=== PATIENT | male | born 1940 | race Caucasian/White ===

== ENCOUNTER 2018-03-10 11:04 | Inpatient (IN) | payer MEDICARE, SELFPAY ==
[2018-03-10] VITALS (18 sets, daily range): BP systolic 118–147; BP diastolic 50–99; PULSE 108–126; RESP 17–33; TEMP 36.6–37.1; O2SAT 91–97; BMI 20.5; BMI 18.8
--- NOTE | 2018-03-10 11:27 | EKG12_ITS ---
Test Reason : SOB Blood Pressure : / mmHG Vent. Rate : 117 BPM Atrial Rate : 117 BPM P-R Int : 112 ms QRS Dur : 074 ms QT Int : 326 ms P-R-T Axes : 082 073 073 degrees QTc Int : 454 ms Sinus tachycardia Otherwise normal ECG Confirmed by ALINE CUNHA, GARRET ([id number]), newspaper or periodical editor DARRELL QUIROZ ([id number] on 03/14/2018 1:18:07 PM Referred By: FUNMI Confirmed By:GARRET MIRELES MD
--- NOTE | 2018-03-10 11:49 | RAD_ITS ---
STUDY: X-RAY CHEST REASON FOR EXAM: Male, 77 years old. TECHNIQUE: COMPARISON: None. FINDINGS: There is hyperinflation of both lung fitzgerald with flattening of the diaphragm. There is a patchy infiltration seen in the right base laterally. The apices are clear. There are multiple metallic stitches along the sternum from previous surgery. The trachea is in the midline. RAD/Chest 1 View (Portable) IMPRESSION: Evidence of chronic obstructive lung disease with Evidence of infiltration right base laterally. Electronically Signed: Osiel Cook, at 12:09 EST Tel , Service support ,
[2018-03-10 12:20] LABS: Bedside Glucose 119 mg/dL (70-110)
[2018-03-10] MEDS: Ipratropium/Albuterol Sulfate 3 ML AMPUL.NEB INHALATION ×2 (12:24→19:27)
[2018-03-10 12:32] LABS: Anion Gap 6 (5-15); BUN 44 mg/dL (7-18); BUN/Creat Ratio 46.6 RATIO (10-20); Calcium,Total 10.2 mg/dL (8.5-10.1); Chloride 101 mmol/L (98-107); Creatinine, Serum 0.94 mg/dL (0.70-1.30); EST Glomerular Filtration Rate 82 mL/min (>60); Est Glom Filt Rate - Afr Amer 99 mL/min (>60); Glucose 130 mg/dL (74-106); Potassium 4.2 mmol/L (3.5-5.1); Sodium Level 145 mmol/L (136-145)
[2018-03-10 12:34] LABS: Absolute Lymphocyte Count 0.37 X10^3/ul (0.83-4.51); Absolute Neutrophil Count 5.5 X10^3/uL (2.0-7.7); Basophil# 0.02 X10^3/uL; Basophil% 0.3 % (0-1); Hematocrit 42.3 % (40-54); Hemoglobin 14.2 g/dl (13.0-16.5); Lymphocyte # 0.37 X10^3/ul (4.0); Lymphocyte % 5.2 % (19-41); Mean Corp Hgb Conc 33.6 g/gl (32-36); Mean Corpuscular Hgb 33.6 pg (27.0-32.0); Mean Corpuscular Volume 100.2 fL (80-94); Mean Platelet Vol. 9.7 fl (6.2-12.0); Monocyte# 1.19 X10^3/uL; Monocyte% 16.8 % (0-10); Neutrophil # 5.48 X10^3/uL (2.7-7.7); Neutrophil % 77.4 % (47-70); Platelet Count 352 K/mm3 (150-450); RBC Distribution Width CV 12.5 % (11.6-14.6); RBC Distribution Width SD 46.4 fl (35.1-43.9); Red Blood Count 4.22 M/mm3 (4.6-6.2); White Blood Count 7.1 K/mm3 (4.4-11.0)
[2018-03-10 12:35] LABS: Differential Indicated SCAN CRITERIA MET; POSITIVE COUNT NO; POSITIVE DIFFERENTIAL YES; POSITIVE MORPHOLOGY YES
[2018-03-10 12:40] LABS: Lactic Acid 1.8 mmol/L (0.4-2.0)
[2018-03-10 12:56] LABS: Allen Test POS; Base Excess 9 mmol/L (-2 to +2); Bicarbonate 34.6 mmol/L (22-26); Blood Gas Specimen Type ART; O2 Delivery Device Nasal Can; PO2 76 mmHG (75-100); SITE R Radial; SO2 94 % (95-99); Time Given 1245; Total Carbon Dioxide 36 mmol/L; pCO2 59.9 mmHg (35-45); pH 7.37 (7.35-7.45)
--- NOTE | 2018-03-10 14:09 | ED.VISSUMM ---
- ER Visit Summary Date of Service: 03/10/18 Chief Complaint: Patient presents by ambulance for decreased O2 saturation History of Present Illness: The patient is a 77 M who was recently admitted to [facility] for visual hallucinations. There is history of alcoholism per family. On patient's arrival he has depressed level of conscious disoriented unable to answer questions properly. He is tachycardic and is saturating 90% percent on 5 L by nasal cannula. Based on paperwork that accompanied him he has history of coronary disease, COPD and GERD. He is status post coronary bypass surgery. Spoke with family at 1400. They informed that he has history of alcoholism. He also informed that his is the POA. She is not here. I spoke to his daughter, sister and [id number]. Physical Examination: Vital signs noted and remarkable for heart rate of 108. He is cachectic. He has labored breathing. Pupils equal round reactive paradoxic muscle intact. Sclerae anicteric. Mucosa is dry. Heart is rapid and regular. He has wheezing and rales noted throughout greater lower lobes posteriorly. Abdomen scaphoid nontender. He moves his extremities. He attempts to answer questions. Unable to perform finger-nose to finger. Cranial 2 through 12 are intact. Negative Babinski sign. There is no clonus. Test Results: White count is normal. Blood gas reveals a chronic CO2 retention with increased ingredients. Chest x-ray reveals an infiltrate lateral posterior right lobe and there also appears to be an infiltrate left lower lobe. There is no evidence of effusion. Since patient does meet criteria for sepsis lactate blood cultures were ordered prior to antibiotics. Since his lactate is pending unable to determine whether patient has severe sepsis or shock. He is not hemodynamically unstable. Emergency Department Course and Treatment: Patient was worked up for his altered mental status. History initially was limited because no family accompanied him and paperwork that accompanied him from the intermediate was scant. Treatment Plan: IV antibiotics for healthcare acquired pneumonia. Daughter will speak with her mother regarding CODE STATUS. Disposition: Admit Impression: 1. Bilateral pneumonia 2. Sepsis 3. Respiratory failure with hypoxia and chronic CO2 retention 4. History of alcoholism 5. History of coronary disease This note was generated with LaunchSideation software. It may contain incorrect words, spelling, and punctuation that were not noted in review of the chart prior to signing ED Disposition - Plan for ED Patient: Chief Complaint: Shortness of Breath Referrals: Julio Gonzalez MD [Primary Care Provider] -
--- NOTE | 2018-03-10 14:13 | ED.DCSUM_ITS ---
- ER Visit Summary Date of Service: 03/10/18 Chief Complaint: Patient presents by ambulance for decreased O2 saturation History of Present Illness: The patient is a 77 M who was recently admitted to [facility] for visual hallucinations. There is history of alcoholism per family. On patient's arrival he has depressed level of conscious disoriented unable to answer questions properly. He is tachycardic and is saturating 90% percent on 5 L by nasal cannula. Based on paperwork that accompanied him he has history of coronary disease, COPD and GERD. He is status post coronary bypass surgery. Spoke with family at 1400. They informed that he has history of alcoholism. He also informed that his is the POA. She is not here. I spoke to his daughter, sister and [id number]. Physical Examination: Vital signs noted and remarkable for heart rate of 108. He is cachectic. He has labored breathing. Pupils equal round reactive paradoxic muscle intact. Sclerae anicteric. Mucosa is dry. Heart is rapid and regular. He has wheezing and rales noted throughout greater lower lobes posteriorly. Abdomen scaphoid nontender. He moves his extremities. He attempts to answer questions. Unable to perform finger-nose to finger. Cranial 2 through 12 are intact. Negative Babinski sign. There is no clonus. Test Results: White count is normal. Blood gas reveals a chronic CO2 retention with increased ingredients. Chest x-ray reveals an infiltrate lateral posterior right lobe and there also appears to be an infiltrate left lower lobe. There is no evidence of effusion. Since patient does meet criteria for sepsis lactate blood cultures were ordered prior to antibiotics. Since his lactate is pending unable to determine whether patient has severe sepsis or shock. He is not hemodynamically unstable. Emergency Department Course and Treatment: Patient was worked up for his altered mental status. History initially was limited because no family accompanied him and paperwork that accompanied him from the long-term was scant. Treatment Plan: IV antibiotics for healthcare acquired pneumonia. Daughter will speak with her mother regarding CODE STATUS. Disposition: Admit Impression: 1. Bilateral pneumonia 2. Sepsis 3. Respiratory failure with hypoxia and chronic CO2 retention 4. History of alcoholism 5. History of coronary disease This note was generated with Qualneticsation software. It may contain incorrect words, spelling, and punctuation that were not noted in review of the chart prior to signing ED Disposition - Plan for ED Patient: Chief Complaint: Shortness of Breath Referrals: Julio Gonzalez MD [Primary Care Provider] -
--- NOTE | 2018-03-10 14:18 | NURSING ---
PCU STEP DOWN ASHELFAH HENNA PNEUMONIA, RESP FAILURE
--- NOTE | 2018-03-10 14:40 | PCM.HP.STD ---
Problem List (1) Encephalopathy acute Status: Acute (2) Sepsis Status: Acute (3) Healthcare-associated pneumonia Status: Acute (4) GERD (gastroesophageal reflux disease) Status: Chronic (5) Alcohol abuse Status: Chronic (6) Hyperlipidemia Status: Chronic (7) Chronic respiratory failure Status: Chronic (8) COPD (chronic obstructive pulmonary disease) Status: Chronic (9) Status post coronary artery bypass graft Status: Chronic (10) Coronary artery disease Status: Chronic History of Present Illness Date of Admission: 03/10/18 Chief Complaint: Lethargy, low pulse ox. The patient is a 77 year old M with past medical history as mentioned above [facility] because of lethargy and low pulse oximeter. At this time, the patient is nonverbal although he is awake and alert, not able to answer any questions. Patient's family including his sister and daughter were at the bedside and they have limited information. Reportedly, patient was admitted recently to [facility] for visual hallucination and he had a history of alcohol abuse in the past. He was [facility] from [facility] to the [facility] and today, his pulse ox was low at the [facility]. His pulse ox was 72% on 5 L of oxygen. Patient is not able to answer questions even simple ones. He had a history of CAD status post CABG years ago and he has been on aspirin and CASTILLO inhibitors. He history of alcohol abuse, has been drinking every day around 2 beers, quit for 6 years and then he relapsed around 6 months ago. He had a history of COPD as well as chronic respiratory failure and has been on oxygen at home at around 2 L but family is not sure. He had a history of hyperlipidemia and he has been on statins. In the emergency room, patient was afebrile, tachycardic, blood pressure was stable, pulse ox was 96% on 5 L. He is lethargic, arousable, not able to talk. His routine blood work was unremarkable. ABG revealed pH of 7.37, PCO2 of 59 and PO2 of 76. EKG revealed sinus tachycardia, otherwise normal. Troponin was negative. Chest x-ray revealed right lower lobe infiltrate/consolidation. He is being admitted for right lower lobe healthcare associated pneumonia with sepsis and encephalopathy probably metabolic. Past Medical History Past Medical History (Chronic Problems): Chronic Problems GERD (gastroesophageal reflux disease) (Chronic) Alcohol abuse (Chronic) Hyperlipidemia (Chronic) Chronic respiratory failure (Chronic) COPD (chronic obstructive pulmonary disease) (Chronic) Status post coronary artery bypass graft (Chronic) Coronary artery disease (Chronic) Allergies quinine Allergy (Verified 03/10/18 11:14) Unknown Home Medications: Ambulatory Orders Medication Instructions Recorded Acetaminophen 650 mg PO Q4H PRN PRN 03/10/18 Acetaminophen [Tylenol] 650 mg RECTAL Q4H PRN PRN 03/10/18 Aspirin [Aspirin, Baby] 81 mg PO DAILY@0800 03/10/18 Bisacodyl 10 mg RC PRN PRN 03/10/18 Fluticasone/Salmeterol [Advair 1 puff INHALATION BID 03/10/18 250/50 Mcg Diskus] Guaifenesin Dm [Robitussin Dm] 10 ml PO Q4H PRN PRN 03/10/18 Lisinopril [Zestril] 10 mg PO DAILY 03/10/18 Lovastatin 80 mg PO QHS 03/10/18 Mag Hydrox/Al Hydrox/Simeth 30 ml PO Q4H PRN PRN 03/10/18 [Mylanta II] Magnesium Hydroxide [Milk Of 30 ml PO DAILY PRN PRN 03/10/18 Magnesia] Nitroglycerin [Nitrostat] 0.4 mg SUBLINGUAL Q5M PRN 03/10/18 Pantoprazole Sodium 40 mg PO DAILY 03/10/18 Surgical History: coronary bypass surgery Psychiatric History: No pertinent psych hx Lives: Detention Smoking Status: Current some day smoker Tobacco Use: Cigarettes Alcohol: Heavy Drugs: None - *Family History Maternal History Items: No pertinent history Paternal History Items: No pertinent history Review of Systems Constitutional: Reports: - - Unobtainable, patient is not communicating although he is alert and awake. Eyes: Reports: - - Unobtainable, patient is not communicating although he is alert and awake. HEENT: Reports: - - Unobtainable, patient is not communicating although he is alert and awake. Cardiovascular: Reports: - - Unobtainable, patient is not communicating although he is alert and awake. Respiratory: Reports: - - Unobtainable, patient is not communicating although he is alert and awake. Gastrointestinal: Reports: - - Unobtainable, patient is not communicating although he is alert and awake. Genitourinary: Reports: - - Unobtainable, patient is not communicating although he is alert and awake. Musculoskeletal: Reports: - - Unobtainable, patient is not communicating although he is alert and awake. Neurological: Reports: - - Unobtainable, patient is not communicating although he is alert and awake. Endocrine: Reports: - - Unobtainable, patient is not communicating although he is alert and awake. VTE Information - Inpt Only VTE Present on Admission: No VTE Mechan Device Prophylaxis: None VTE Pharm Prophylaxis ordered?: Yes Patient Problems: Active and Suspected Problems Encephalopathy acute (Acute) Sepsis (Acute) Healthcare-associated pneumonia (Acute) - Physical Exam General: Alert - Spontaneous eye opening, nonverbal, not able to answer simple questions, not following commands. HEENT: Atraumatic, PERRLA, EOMI, Normocephalic Oral: Moist Mucosa Neck: Supple, No JVD, Negative Carotid Bruits, Trachea Midline, Thyroid Normal Size and Texture Lungs: No wheeze, No rales, Diminished, Rhonchi Cardiovascular: Regular rate, Regular Rhythm, Normal S1, Normal S2, PMI Normal, Tachycardic Abdomen: Bowel Sounds Present, Soft, Non Tender, Non-Distended, No Hepato-splenomegaly Extremities: No clubbing, No cyanosis, No edema Skin: No rashes, No breakdown Lymphatic: No Cervical, Supraclavicular, or Inguinal Adenopathy Neurological: Cranial nerves II-XII grossly intact, Neuro grossly intact, - - Global weakness. Psych/Mental Status: Flat Affect Vital Signs Temp Pulse Resp BP Pulse Ox 98.7 F 126 H 17 123/67 H 97 03/10/18 11:10 03/10/18 13:08 03/10/18 13:08 03/10/18 13:08 03/10/18 13:08 Oxygen Flow Rate (L/min) 5 Oxygen Delivery Method Nasal Cannula Weight: 135 lb Body Mass Index (BMI) 20.5 Finger Stick Blood Glucose 119 Laboratory Tests Past 24 Hrs 03/10/18 03/10/18 03/10/18 12:00 12:00 12:00 WBC 7.1 RBC 4.22 L Hgb 14.2 Hct 42.3 MCV 100.2 H MCH 33.6 H MCHC 33.6 RDW 12.5 RDW Differential 46.4 H Plt Count 352 MPV 9.7 Immature Gran % (Auto) 0.300 Neut % (Auto) 77.4 H Lymph % (Auto) 5.2 L [place] % (Auto) 16.8 H Eos % (Auto) 0.0 Baso % (Auto) 0.3 Absolute Neuts (auto) 5.5 Absolute Lymphs (auto) 0.37 L Total Counted Not Reportable Differential Comment COMMENT Specimen Type Sample Site pH Bicarbonate Actual POC Total CO2 Base Excess O2 Saturation ABG pCO2 ABG pO2 Keith Test O2 Delivery Device Liter Flow Blood Gas Notified Whom Blood Gas Notified Time Sodium 145 Potassium 4.2 Chloride 101 Carbon Dioxide 38.0 H Anion Gap 6 BUN 44 H Creatinine 0.94 Estim Creat Clear Calc 56.10 Est GFR (MDRD) Af Amer 99 Est GFR (MDRD) Non-Af 82 BUN/Creatinine Ratio 46.6 H Glucose 130 H Lactic Acid 1.8 Calcium 10.2 H Total Bilirubin Direct Bilirubin AST ALT Alkaline Phosphatase Troponin I < 0.015 Total Protein Albumin 03/10/18 03/10/18 12:00 12:51 WBC RBC Hgb Hct MCV MCH MCHC RDW RDW Differential Plt Count MPV Immature Gran % (Auto) Neut % (Auto) Lymph % (Auto) [place] % (Auto) Eos % (Auto) Baso % (Auto) Absolute Neuts (auto) Absolute Lymphs (auto) Total Counted Differential Comment Specimen Type ART Sample Site R Radial pH 7.37 Bicarbonate Actual 34.6 H POC Total CO2 36 Base Excess 9 H O2 Saturation 94 L ABG pCO2 59.9 H ABG pO2 76 Keith Test POS O2 Delivery Device Nasal Can Liter Flow 5.0 Blood Gas Notified Whom ED MD Blood Gas Notified Time 1245 Sodium Potassium Chloride Carbon Dioxide Anion Gap BUN Creatinine Estim Creat Clear Calc Est GFR (MDRD) Af Amer Est GFR (MDRD) Non-Af BUN/Creatinine Ratio Glucose Lactic Acid Calcium Total Bilirubin Pending Direct Bilirubin Pending AST Pending ALT Pending Alkaline Phosphatase Pending Troponin I Total Protein Pending Albumin Pending POC Glucose 03/10/18 12:11 POC Glucose 119 H Clinical Impression(s) from Imaging Studies Chest X-Ray 03/10/18 11:49 IMPRESSION: Evidence of chronic obstructive lung disease with Evidence of infiltration right base laterally. Electronically Signed: Osiel Cook, at 12:09 EST Tel , Service support , Assessment/Plan All Active Problems Encephalopathy acute (Acute) Sepsis (Acute) Healthcare-associated pneumonia (Acute) This is a 77 years old male patient [facility] because of low pulse oximeter and lethargy, found to have right lower lobe infiltrate/consolidation consistent with healthcare associated pneumonia with sepsis as well as probably metabolic encephalopathy. #1 right lower lobe healthcare associated pneumonia/sepsis: Aspiration pneumonia is in the differential diagnosis. Chest x-ray reviewed. Patient is tachycardic and hypoxic. Lactic acid is normal, no leukocytosis. EKG revealed sinus tachycardia. Plan: Admit to PCU stepdown, keep on n.p.o., IV fluids, blood culture, urine culture, sputum culture, urine analysis, bronchodilators, pneumococcal and Legionella antigen, start IV vancomycin and Zosyn, repeat CBC and BMP tomorrow morning, PT OT evaluation and treatment, speech therapy evaluation and treatment, aspiration and fall precautions. #2 encephalopathy: Probably metabolic. Patient's family mentioned that his mentation is not usual for him. He is alert and awake but not able to communicate, nonverbal. He has no focal deficit obvious on exam. Recently, he was admitted for visualization due to alcohol withdrawal. Plan: MRI brain, serum ammonia, LFT, fall and aspiration precautions. #3 alcohol abuse: Patient drinks at least 2 beers daily. He quit around 6 years ago, relapsed in several last months. Plan: CIWA protocol, IV folic acid and thiamine supplement, Ativan as needed. #4 CAD status post CABG: EKG reviewed, no acute ischemic changes. Troponin is negative. At home, patient has been on aspirin and lisinopril as well as statins. They will be held because patient will be n.p.o. #5 chronic respiratory failure/COPD: Reportedly, patient has been oxygen at home, around 2-5 L but family is not sure. At this time, he is on 5 L, pulse ox is 96%. At the [facility], pulse ox was 72% on 5 L. Plan: DuoNeb every 6 hours, albuterol as needed, chest physiotherapy, incentive spirometer. #6 hyperlipidemia: Hold statins. #7 GERD: Start IV Protonix. #8 CODE STATUS: Discussed the CODE STATUS with patient's daughter and sister. Patient's daughter spoke to her mother over the phone and she confirmed that patient does not want intubation, CPR or chest compressions. He is DNR CCA. #9 DVT prophylaxis: Subcu Lovenox. This note was generated with avox dictation software. It may contain incorrect words, spelling, and punctuation that were not noted in checking the note before signing. Code Visit Inpatient E&M: 21714 Init Hosp L3
[2018-03-10] MEDS: Piperacil/Tazobactam 3.375 GM/50 ML ML IV ×2 (14:42→23:00)
--- NOTE | 2018-03-10 14:46 | HP.PCM_ITS ---
Problem List (1) Encephalopathy acute Status: Acute (2) Sepsis Status: Acute (3) Healthcare-associated pneumonia Status: Acute (4) GERD (gastroesophageal reflux disease) Status: Chronic (5) Alcohol abuse Status: Chronic (6) Hyperlipidemia Status: Chronic (7) Chronic respiratory failure Status: Chronic (8) COPD (chronic obstructive pulmonary disease) Status: Chronic (9) Status post coronary artery bypass graft Status: Chronic (10) Coronary artery disease Status: Chronic History of Present Illness Date of Admission: 03/10/18 Chief Complaint: Lethargy, low pulse ox. The patient is a 77 year old M with past medical history as mentioned above [facility] because of [facility]argy and low pulse oximeter. At this time, the patient is nonverbal although he is awake and alert, not able to answer any questions. Patient's family including his sister and daughter were at the bedside and they have limited information. Reportedly, patient was admitted recently to [facility] for visual hallucination and he had a history of alcohol abuse in the past. [facility] was [facility] and today, his pulse ox was [facility] at the [facility]. His pulse ox was 72% on 5 L of oxygen. Patient is not able to answer questions even simple ones. He had a history of CAD status post CABG years ago and he has been on aspirin and CASTILLO inhibitors. He history of alcohol abuse, has been drinking every day around 2 beers, quit for 6 years and then he relapsed around 6 months ago. He had a history of COPD as well as chronic respiratory failure and has been on oxygen at home at around 2 L but family is not sure. He had a history of hyperlipidemia and he has been on statins. In the emergency room, patient was afebrile, tachycardic, blood pressure was stable, pulse ox was 96% on 5 L. He is lethargic, arousable, not able to talk. His routine blood work was unremarkable. ABG revealed pH of 7.37, PCO2 of 59 and PO2 of 76. EKG revealed sinus tachycardia, otherwise normal. Troponin was negative. Chest x-ray revealed right lower lobe infiltrate/consolidation. He is being admitted for right lower lobe healthcare associated pneumonia with sepsis and encephalopathy probably metabolic. Past Medical History Past Medical History (Chronic Problems): Chronic Problems GERD (gastroesophageal reflux disease) (Chronic) Alcohol abuse (Chronic) Hyperlipidemia (Chronic) Chronic respiratory failure (Chronic) COPD (chronic obstructive pulmonary disease) (Chronic) Status post coronary artery bypass graft (Chronic) Coronary artery disease (Chronic) Allergies quinine Allergy (Verified 03/10/18 11:14) Unknown Home Medications: Ambulatory Orders Medication Instructions Recorded Acetaminophen 650 mg PO Q4H PRN PRN 03/10/18 Acetaminophen [Tylenol] 650 mg RECTAL Q4H PRN PRN 03/10/18 Aspirin [Aspirin, Baby] 81 mg PO DAILY@0800 03/10/18 Bisacodyl 10 mg RC PRN PRN 03/10/18 Fluticasone/Salmeterol [Advair 1 puff INHALATION BID 03/10/18 250/50 Mcg Diskus] Guaifenesin Dm [Robitussin Dm] 10 ml PO Q4H PRN PRN 03/10/18 Lisinopril [Zestril] 10 mg PO DAILY 03/10/18 Lovastatin 80 mg PO QHS 03/10/18 Mag Hydrox/Al Hydrox/Simeth 30 ml PO Q4H PRN PRN 03/10/18 [Mylanta II] Magnesium Hydroxide [Milk Of 30 ml PO DAILY PRN PRN 03/10/18 Magnesia] Nitroglycerin [Nitrostat] 0.4 mg SUBLINGUAL Q5M PRN 03/10/18 Pantoprazole Sodium 40 mg PO DAILY 03/10/18 Surgical History: coronary bypass surgery Psychiatric History: No pertinent psych hx Lives: Correction Smoking Status: Current some day smoker Tobacco Use: Cigarettes Alcohol: Heavy Drugs: None - *Family History Maternal History Items: No pertinent history Paternal History Items: No pertinent history Review of Systems Constitutional: Reports: - - Unobtainable, patient is not communicating although he is alert and awake. Eyes: Reports: - - Unobtainable, patient is not communicating although he is alert and awake. HEENT: Reports: - - Unobtainable, patient is not communicating although he is alert and awake. Cardiovascular: Reports: - - Unobtainable, patient is not communicating although he is alert and awake. Respiratory: Reports: - - Unobtainable, patient is not communicating although he is alert and awake. Gastrointestinal: Reports: - - Unobtainable, patient is not communicating although he is alert and awake. Genitourinary: Reports: - - Unobtainable, patient is not communicating although he is alert and awake. Musculoskeletal: Reports: - - Unobtainable, patient is not communicating although he is alert and awake. Neurological: Reports: - - Unobtainable, patient is not communicating although he is alert and awake. Endocrine: Reports: - - Unobtainable, patient is not communicating although he is alert and awake. VTE Information - Inpt Only VTE Present on Admission: No VTE Mechan Device Prophylaxis: None VTE Pharm Prophylaxis ordered?: Yes Patient Problems: Active and Suspected Problems Encephalopathy acute (Acute) Sepsis (Acute) Healthcare-associated pneumonia (Acute) - Physical Exam General: Alert - Spontaneous eye opening, nonverbal, not able to answer simple questions, not following commands. HEENT: Atraumatic, PERRLA, EOMI, Normocephalic Oral: Moist Mucosa Neck: Supple, No JVD, Negative Carotid Bruits, Trachea Midline, Thyroid Normal Size and Texture Lungs: No wheeze, No rales, Diminished, Rhonchi Cardiovascular: Regular rate, Regular Rhythm, Normal S1, Normal S2, PMI Normal, Tachycardic Abdomen: Bowel Sounds Present, Soft, Non Tender, Non-Distended, No Hepato- splenomegaly Extremities: No clubbing, No cyanosis, No edema Skin: No rashes, No breakdown Lymphatic: No Cervical, Supraclavicular, or Inguinal Adenopathy Neurological: Cranial nerves II-XII grossly intact, Neuro grossly intact, - - Global weakness. Psych/Mental Status: Flat Affect Vital Signs Temp Pulse Resp BP Pulse Ox 98.7 F 126 H 17 123/67 H 97 03/10/18 11:10 03/10/18 13:08 03/10/18 13:08 03/10/18 13:08 03/10/18 13:08 Oxygen Flow Rate (L/min) 5 Oxygen Delivery Method Nasal Cannula Weight: 135 lb Body Mass Index (BMI) 20.5 Finger Stick Blood Glucose 119 Laboratory Tests Past 24 Hrs 03/10/18 03/10/18 03/10/18 12:00 12:00 12:00 WBC 7.1 RBC 4.22 L Hgb 14.2 Hct 42.3 MCV 100.2 H MCH 33.6 H MCHC 33.6 RDW 12.5 RDW Differential 46.4 H Plt Count 352 MPV 9.7 Immature Gran % (Auto) 0.300 Neut % (Auto) 77.4 H Lymph % (Auto) 5.2 L Levy % (Auto) 16.8 H Eos % (Auto) 0.0 Baso % (Auto) 0.3 Absolute Neuts (auto) 5.5 Absolute Lymphs (auto) 0.37 L Total Counted Not Reportable Differential Comment COMMENT Specimen Type Sample Site pH Bicarbonate Actual POC Total CO2 Base Excess O2 Saturation ABG pCO2 ABG pO2 Keith Test O2 Delivery Device Liter Flow Blood Gas Notified Whom Blood Gas Notified Time Sodium 145 Potassium 4.2 Chloride 101 Carbon Dioxide 38.0 H Anion Gap 6 BUN 44 H Creatinine 0.94 Estim Creat Clear Calc 56.10 Est GFR (MDRD) Af Amer 99 Est GFR (MDRD) Non-Af 82 BUN/Creatinine Ratio 46.6 H Glucose 130 H Lactic Acid 1.8 Calcium 10.2 H Total Bilirubin Direct Bilirubin AST ALT Alkaline Phosphatase Troponin I < 0.015 Total Protein Albumin 03/10/18 03/10/18 12:00 12:51 WBC RBC Hgb Hct MCV MCH MCHC RDW RDW Differential Plt Count MPV Immature Gran % (Auto) Neut % (Auto) Lymph % (Auto) Levy % (Auto) Eos % (Auto) Baso % (Auto) Absolute Neuts (auto) Absolute Lymphs (auto) Total Counted Differential Comment Specimen Type ART Sample Site R Radial pH 7.37 Bicarbonate Actual 34.6 H POC Total CO2 36 Base Excess 9 H O2 Saturation 94 L ABG pCO2 59.9 H ABG pO2 76 Keith Test POS O2 Delivery Device Nasal Can Liter Flow 5.0 Blood Gas Notified Whom ED MD Blood Gas Notified Time 1245 Sodium Potassium Chloride Carbon Dioxide Anion Gap BUN Creatinine Estim Creat Clear Calc Est GFR (MDRD) Af Amer Est GFR (MDRD) Non-Af BUN/Creatinine Ratio Glucose Lactic Acid Calcium Total Bilirubin Pending Direct Bilirubin Pending AST Pending ALT Pending Alkaline Phosphatase Pending Troponin I Total Protein Pending Albumin Pending POC Glucose 03/10/18 12:11 POC Glucose 119 H Clinical Impression(s) from Imaging Studies Chest X-Ray 03/10/18 11:49 IMPRESSION: Evidence of chronic obstructive lung disease with Evidence of infiltration right base laterally. Electronically Signed: Osiel Cook, at 12:09 EST Tel , Service support , Assessment/Plan All Active Problems Encephalopathy acute (Acute) Sepsis (Acute) Healthcare-associated pneumonia (Acute) This is a 77 years old male patient [facility] of low pulse oximeter and lethargy, found to have right lower lobe infiltrate/consolidation consistent with healthcare associated pneumonia with sepsis as well as probably metabolic encephalopathy. #1 right lower lobe healthcare associated pneumonia/sepsis: Aspiration pneumonia is in the differential diagnosis. Chest x-ray reviewed. Patient is tachycardic and hypoxic. Lactic acid is normal, no leukocytosis. EKG revealed sinus tachycardia. Plan: Admit to PCU stepdown, keep on n.p.o., IV fluids, blood culture, urine culture, sputum culture, urine analysis, bronchodilators, pneumococcal and Legionella antigen, start IV vancomycin and Zosyn, repeat CBC and BMP tomorrow morning, PT OT evaluation and treatment, speech therapy evaluation and treatment, aspiration and fall precautions. #2 encephalopathy: Probably metabolic. Patient's family mentioned that his mentation is not usual for him. He is alert and awake but not able to communicate, nonverbal. He has no focal deficit obvious on exam. Recently, he was admitted for visualization due to alcohol withdrawal. Plan: MRI brain, serum ammonia, LFT, fall and aspiration precautions. #3 alcohol abuse: Patient drinks at least 2 beers daily. He quit around 6 years ago, relapsed in several last months. Plan: CIWA protocol, IV folic acid and thiamine supplement, Ativan as needed. #4 CAD status post CABG: EKG reviewed, no acute ischemic changes. Troponin is negative. At home, patient has been on aspirin and lisinopril as well as statins. They will be held because patient will be n.p.o. #5 chronic respiratory failure/COPD: Reportedly, patient has been oxygen at home, around 2-5 L but family is not sure. At this time, he is on 5 L, pulse ox is 96%. [facility], pulse ox was 72% on 5 L. Plan: DuoNeb every 6 hours, albuterol as needed, chest physiotherapy, incentive spirometer. #6 hyperlipidemia: Hold statins. #7 GERD: Start IV Protonix. #8 CODE STATUS: Discussed the CODE STATUS with patient's daughter and sister. Patient's daughter spoke to her mother over the phone and she confirmed that patient does not want intubation, CPR or chest compressions. He is DNR CCA. #9 DVT prophylaxis: Subcu Lovenox. This note was generated with Predict[employer] dictation software. It may contain incorrect words, spelling, and punctuation that were not noted in checking the note before signing. Code Visit Inpatient E&M: 43414 Init Hosp L3
[2018-03-10 14:56] LABS: AST(SGOT) 19 U/L (15-37); Alanine Aminotransfer ALT/SGPT 40 U/L (16-61); Albumin, Serum 3.2 g/dL (3.2-5.0); Alkaline Phosphatase 66 U/L (45-117); Bilirubin, Direct 0.39 mg/dL (0.00-0.30); Globulin 4.3 g/dL (2.2-4.2); Protein, Total 7.5 g/dL (6.4-8.2)
[2018-03-10 16:17] LABS: Ammonia < 10.0 umol/L (11-32)
[2018-03-10] MEDS: Dextrose 5%-Lactated Ringers 1,000 ML 75 ML IV (16:36)
[2018-03-10 16:43] LABS: International Normalized Ratio 1.3; Prothrombin Time (Protime)PT. 15.9 SECONDS (11.7-14.9)
--- NOTE | 2018-03-10 19:59 | PCM.RX.CS ---
Consult Pharmacy has been consulted to manage selected antiobiotic: Vancomycin Type of Consult: New start Suspected Infection: Pneumonia Prior Doses of Antibiotics Received/Current Regimen: Received 750mg iv on 03.10.18 @1700. Labs: Sodium 145 mmol/L (136-145) 03/10/18 12:00 Potassium 4.2 mmol/L (3.5-5.1) 03/10/18 12:00 Chloride 101 mmol/L (98-107) 03/10/18 12:00 Carbon Dioxide 38.0 mmol/L (21.0-32.0) H 03/10/18 12:00 Anion Gap 6 (5-15) 03/10/18 12:00 BUN 44 mg/dL (7-18) H 03/10/18 12:00 Creatinine 0.94 mg/dL (0.70-1.30) 03/10/18 12:00 Est GFR (MDRD) Af Amer 99 mL/min (>60) 03/10/18 12:00 Est GFR (MDRD) Non-Af 82 mL/min (>60) 03/10/18 12:00 BUN/Creatinine Ratio 46.6 RATIO (10-20) H 03/10/18 12:00 Glucose 130 mg/dL (74-106) H 03/10/18 12:00 Weight used for dosin.6 kg Estimated Creatinine Clearance: ~56 ml/min Goal Trough: 10-15 mcg/mL Pharmacy Plan for Drug Dosing: Will begin 1gm iv q24h (~18mg/kg) and get vancomycin trough 03.12.18. Renal status reviewed, Cr 0.94 with CrCl ~56 ml/min. Pharmacy Service will continue to monitor and adjust dosing as required. Follow-Up Labs: Trough Vancomycin - 03.12.18 @1630 before 1700 dose
--- NOTE | 2018-03-10 20:20 | CT_ITS ---
STUDY: CT BRAIN WITHOUT CONTRAST REASON FOR EXAM: Male, 77 years old. Altered mental status RADIATION DOSAGE (If Supplied By Facility): CTDIvol = ( 60.81 ) mGy, DLP = ( 1249.53 ) mGycm TECHNIQUE: Transaxial CT imaging of the brain was performed without administration of intravenous contrast material. Individualized dose optimization techniques were used for this CT. COMPARISON: None. FINDINGS: Normal soft tissue structures. Normal calvarium. Mildly prominent size ventricles and extra-axial spaces with mild atrophy. Bilateral white matter microangiopathic ischemic changes of the cerebral hemispheres. Normal basal ganglia and thalami. Normal brainstem. Normal cerebellum. There is no intracranial hemorrhage. There are no findings of an acute ischemic infarction. Normal visualized paranasal sinuses. Technically limited study with motion. CT/Brain/Head without Contrast IMPRESSION: Atrophy and age-related changes of the brain. Electronically Signed: Jake Santoro DO at 22:15 EST Tel [phone], Service support ,
[2018-03-10] MEDS: Haloperidol Lactate 5 MG/ML Vial 2 MG IV (22:11)
--- NOTE | 2018-03-10 22:17 | NURSING ---
Pt admitted with confusion, pnumonia. Pt in need of supplemental O2. Pt consistantly pulling and removing Nasal cannula and Venti mask. After multiple attempt to reorient and redirect patient continues to pull off oxygen. Becoming more agitated with staff and becoming more tachypneic. Orders received for x1 dose of Haldol IV
[2018-03-10] MEDS: Albuterol 2.5 MG/3 ML VIAL.NEB. INHALATION (22:43)
[2018-03-10] MEDS: LORazepam 2 MG/ML Syringe 1 MG IV (23:51)
[2018-03-10 23:56] LABS: Color, Urine Yellow (Yellow); Glucose, Dipstick Normal (Normal); Ketone-Dipstick Negative (Negative); Leukocyte Esterase-Dipstick Negative /ul (Negative); Nitrite-Dipstick Negative (Negative); Occult Blood-Urine 10 /ul (Negative); Protein-Dipstick 30 mg/dl (Negative); Specific Gravity, Urine 1.015 (1.002-1.030); Urine Bilirubin Dipstick Negative (Negative); Urine Clarity Clear (Clear); Urine Urobilinogen 4 mg/dl (Normal); Urine pH 6.5 (5.0 - 8.0)
[2018-03-11] VITALS (23 sets, daily range): BP systolic 90–137; BP diastolic 38–79; PULSE 95–118; RESP 19–24; TEMP 36.4–36.8; O2SAT 92–99
[2018-03-11] MEDS: Piperacil/Tazobactam 3.375 GM/50 ML ML IV ×3 (05:09→21:27)
[2018-03-11] MEDS: Dextrose 5%-Lactated Ringers 1,000 ML 75 ML IV ×2 (06:44→19:45)
[2018-03-11 06:45] LABS: Anion Gap 5 (5-15); BUN 47 mg/dL (7-18); BUN/Creat Ratio 40.2 RATIO (10-20); Calcium,Total 9.7 mg/dL (8.5-10.1); Chloride 106 mmol/L (98-107); Creatinine, Serum 1.17 mg/dL (0.70-1.30); EST Glomerular Filtration Rate 64 mL/min (>60); Est Glom Filt Rate - Afr Amer 78 mL/min (>60); Estimated Creatinine Clearance 41.66 ml/min; Glucose 158 mg/dL (74-106); Potassium 3.8 mmol/L (3.5-5.1); Sodium Level 148 mmol/L (136-145)
[2018-03-11 06:49] LABS: Absolute Lymphocyte Count 0.65 X10^3/ul (0.83-4.51); Absolute Neutrophil Count 13.3 X10^3/uL (2.0-7.7); Basophil# 0.03 X10^3/uL; Basophil% 0.2 % (0-1); Hemoglobin 13.3 g/dl (13.0-16.5); Lymphocyte # 0.65 X10^3/ul (4.0); Lymphocyte % 4.4 % (19-41); Mean Corp Hgb Conc 31.7 g/gl (32-36); Mean Corpuscular Hgb 33.3 pg (27.0-32.0); Mean Corpuscular Volume 105.3 fL (80-94); Monocyte# 0.53 X10^3/uL; Monocyte% 3.6 % (0-10); Neutrophil # 13.34 X10^3/uL (2.7-7.7); Neutrophil % 91.1 % (47-70); Platelet Count 312 K/mm3 (150-450); RBC Distribution Width CV 12.8 % (11.6-14.6); RBC Distribution Width SD 48.4 fl (35.1-43.9); Red Blood Count 3.99 M/mm3 (4.6-6.2); White Blood Count 14.7 K/mm3 (4.4-11.0)
[2018-03-11 06:51] LABS: POSITIVE COUNT NO; POSITIVE DIFFERENTIAL NO; POSITIVE MORPHOLOGY NO
[2018-03-11] MEDS: LORazepam 2 MG/ML Syringe 1 MG IV ×3 (08:48→20:30)
--- NOTE | 2018-03-11 09:11 | RAD_ITS ---
STUDY: X-RAY CHEST REASON FOR EXAM: Male, 77 years old. Shortness of breath, sepsis, encephalopathy, alcohol abuse. TECHNIQUE: AP portable upright view of the chest on 2 films. Patient reportedly was unresponsive at the time of imaging. COMPARISON: Portable AP upright chest x-ray March 10, 2018. FINDINGS: There is hyperinflation of the lungs consistent with chronic obstructive lung disease (COPD). Ill-defined right base infiltrate persists, although appearing less confluent at its lateral margin today. There is no demonstrated pleural abnormality. Normal size heart. Sternal cerclage wires are present from a prior sternotomy. Normal mediastinum and familia. Normal visualized pulmonary arteries. Mild transverse linear densities in the lateral left base likely represent chronic scarring rather than Radu B lines of venous/lymphatic congestion. There is stable atherosclerotic calcification of the aortic arch. Normal visualized thoracic spine. Normal visualized ribs, clavicles, and shoulders. There is no demonstrated abnormality of the visualized soft tissue structures of the upper abdomen. RAD/Chest 1 View (Portable) IMPRESSION: 1. Hyperinflated, consistent with obstructive pulmonary disease. 2. Persistent right lung base infiltrate. 3. Prior median sternotomy. Heart size and pulmonary vascular pattern are within normal limits. Electronically Signed: Donald Grady MD at 13:41 EST , Service support ,
[2018-03-11 09:23] LABS: M R Staph aureus DNA By PCR Negative (Negative); Probe Check PASS; Specimen Processing Control PASS
--- NOTE | 2018-03-11 09:42 | CASEMGMT ---
Addendum entered by Emily Talbot 03/11/18 09:48: clinical update faxed to [facility]. TERRENCE Rangel Original Note: Social Work Pt is from [facility]. SW attempted to meet with pt but pt not awake at this time. Phone call to pt x2 with no answer. Call to at [facility]. Pt very recently admitted to [facility] and is currently there under Medicare skilled care. Plan: return to [facility] when medically ready. TERRENCE Rnagel
[2018-03-11] MEDS: Enoxaparin 30 MG/0.3 ML Syringe SC (11:16)
[2018-03-11] MEDS: QUEtiapine 25 MG Tablet PO (12:16)
--- NOTE | 2018-03-11 12:17 | PN_ITS ---
Patient Problems: Active and Suspected Problems Encephalopathy acute (Acute) Sepsis (Acute) Healthcare-associated pneumonia (Acute) Subjective: Pt is alert but not answering any questions appropriately. He is confused and agitated. His baseline is unclear. will be in later today, we will need to find out what he is like at the intermediate Ativan is helping somewhat with agitation, however he is persistently trying to climb out of bed and needs near constant redirection. He has been staying in a intermediate. It is not clear if he is on O2 chronically. It is not completely clear if he has had access to alcohol at the intermediate however it is unlikely. - Physical Exam General: Alert, Confused, Disoriented HEENT: Atraumatic, PERRLA, EOMI, Normocephalic Neck: Supple, No JVD, Negative Carotid Bruits Lungs: Diminished Cardiovascular: Regular rate, No murmurs Abdomen: Bowel Sounds Present, Soft, Non Tender Extremities: No edema, Capillary Refill Less than 3 Seconds Skin: No rashes, No breakdown Musculoskeletal: No Tenderness to Palpation of Joints or Extremities Neurological: Cranial nerves II-XII grossly intact Psych/Mental Status: Anxious, Impulsive Vital Signs Temp Pulse Resp BP Pulse Ox 97.6 F L 116 H 20 H 117/79 96 03/11/18 11:20 03/11/18 11:20 03/11/18 11:20 03/11/18 11:20 03/11/18 11:20 Oxygen Flow Rate (L/min) 3 Oxygen Delivery Method Nasal Cannula Weight: 124 lb 12.506 oz Body Mass Index (BMI) 18.8 Finger Stick Blood Glucose 119 Intake and Output for Last 24 Hours 03/09/18 03/10/18 03/11/18 23:59 23:59 23:59 Intake Total 111 / 111 786 / 786 Balance 111 / 111 786 / 786 Microbiology Past 72 Hours 03/10/18 23:30 Legionella Antigen - Final Interface Orders 03/10/18 23:30 Streptococcus pneumoniae Antigen (M - Final Interface Orders Laboratory Tests Past 24 Hrs 03/10/18 03/10/18 03/10/18 12:00 12:00 12:00 WBC 7.1 RBC 4.22 L Hgb 14.2 Hct 42.3 MCV 100.2 H MCH 33.6 H MCHC 33.6 RDW 12.5 RDW Differential 46.4 H Plt Count 352 MPV 9.7 Immature Gran % (Auto) 0.300 Neut % (Auto) 77.4 H Lymph % (Auto) 5.2 L Hitchcock % (Auto) 16.8 H Eos % (Auto) 0.0 Baso % (Auto) 0.3 Absolute Neuts (auto) 5.5 Absolute Lymphs (auto) 0.37 L Total Counted Not Reportable Differential Comment COMMENT PT INR Specimen Type Sample Site pH Bicarbonate Actual POC Total CO2 Base Excess O2 Saturation ABG pCO2 ABG pO2 Keith Test O2 Delivery Device Liter Flow Blood Gas Notified Whom Blood Gas Notified Time Sodium 145 Potassium 4.2 Chloride 101 Carbon Dioxide 38.0 H Anion Gap 6 BUN 44 H Creatinine 0.94 Estim Creat Clear Calc 56.10 Est GFR (MDRD) Af Amer 99 Est GFR (MDRD) Non-Af 82 BUN/Creatinine Ratio 46.6 H Glucose 130 H Lactic Acid 1.8 Calcium 10.2 H Total Bilirubin Direct Bilirubin AST ALT Alkaline Phosphatase Ammonia Troponin I < 0.015 Total Protein Albumin Globulin Urine Color Urine Clarity Urine pH Ur Specific [place] [address] Urine Protein Urine Glucose (UA) Urine Ketones Urine Occult Blood Urine Nitrite Urine Bilirubin Urine Urobilinogen Ur Leukocyte Esterase MRSA (PCR) 03/10/18 03/10/18 03/10/18 12:00 12:00 12:51 WBC RBC Hgb Hct MCV MCH MCHC RDW RDW Differential Plt Count MPV Immature Gran % (Auto) Neut % (Auto) Lymph % (Auto) Hitchcock % (Auto) Eos % (Auto) Baso % (Auto) Absolute Neuts (auto) Absolute Lymphs (auto) Total Counted Differential Comment PT 15.9 H INR 1.3 Specimen Type ART Sample Site R Radial pH 7.37 Bicarbonate Actual 34.6 H POC Total CO2 36 Base Excess 9 H O2 Saturation 94 L ABG pCO2 59.9 H ABG pO2 76 Keith Test POS O2 Delivery Device Nasal Can Liter Flow 5.0 Blood Gas Notified Whom ED Blood Gas Notified Time 1245 Sodium Potassium Chloride Carbon Dioxide Anion Gap BUN Creatinine Estim Creat Clear Calc Est GFR (MDRD) Af Amer Est GFR (MDRD) Non-Af BUN/Creatinine Ratio Glucose Lactic Acid Calcium Total Bilirubin 0.70 Direct Bilirubin 0.39 H AST 19 ALT 40 Alkaline Phosphatase 66 Ammonia Troponin I Total Protein 7.5 Albumin 3.2 Globulin 4.3 H Urine Color Urine Clarity Urine pH Ur Specific [address] Urine Protein Urine Glucose (UA) Urine Ketones Urine Occult Blood Urine Nitrite Urine Bilirubin Urine Urobilinogen Ur Leukocyte Esterase MRSA (PCR) 03/10/18 03/10/18 03/11/18 15:35 23:30 05:50 WBC 14.7 H RBC 3.99 L Hgb 13.3 Hct 42.0 MCV 105.3 H MCH 33.3 H MCHC 31.7 L RDW 12.8 RDW Differential 48.4 H Plt Count 312 MPV 10.0 Immature Gran % (Auto) 0.700 Neut % (Auto) 91.1 H Lymph % (Auto) 4.4 L Hitchcock % (Auto) 3.6 Eos % (Auto) 0.0 Baso % (Auto) 0.2 Absolute Neuts (auto) 13.3 H Absolute Lymphs (auto) 0.65 L Total Counted Not Reportable Differential Comment PT INR Specimen Type Sample Site pH Bicarbonate Actual POC Total CO2 Base Excess O2 Saturation ABG pCO2 ABG pO2 Keith Test O2 Delivery Device Liter Flow Blood Gas Notified Whom Blood Gas Notified Time Sodium Potassium Chloride Carbon Dioxide Anion Gap BUN Creatinine Estim Creat Clear Calc Est GFR (MDRD) Af Amer Est GFR (MDRD) Non-Af BUN/Creatinine Ratio Glucose Lactic Acid Calcium Total Bilirubin Direct Bilirubin AST ALT Alkaline Phosphatase Ammonia < 10.0 L Troponin I Total Protein Albumin Globulin Urine Color Yellow Urine Clarity Clear Urine pH 6.[address] 1.015 Urine Protein 30 H Urine Glucose (UA) Normal Urine Ketones Negative Urine Occult Blood 10 H Urine Nitrite Negative Urine Bilirubin Negative Urine Urobilinogen 4 H Ur Leukocyte Esterase Negative MRSA (PCR) 03/11/18 03/11/18 05:50 07:00 WBC RBC Hgb Hct MCV MCH MCHC RDW RDW Differential Plt Count MPV Immature Gran % (Auto) Neut % (Auto) Lymph % (Auto) Hitchcock % (Auto) Eos % (Auto) Baso % (Auto) Absolute Neuts (auto) Absolute Lymphs (auto) Total Counted Differential Comment PT INR Specimen Type Sample Site pH Bicarbonate Actual POC Total CO2 Base Excess O2 Saturation ABG pCO2 ABG pO2 Keith Test O2 Delivery Device Liter Flow Blood Gas Notified Whom Blood Gas Notified Time Sodium 148 H Potassium 3.8 Chloride 106 Carbon Dioxide 37.0 H Anion Gap 5 BUN 47 H Creatinine 1.17 Estim Creat Clear Calc 41.66 Est GFR (MDRD) Af Amer 78 Est GFR (MDRD) Non-Af 64 BUN/Creatinine Ratio 40.2 H Glucose 158 H Lactic Acid Calcium 9.7 Total Bilirubin Direct Bilirubin AST ALT Alkaline Phosphatase Ammonia Troponin I Total Protein Albumin Globulin Urine Color Urine Clarity Urine pH Ur Specific [address] Urine Protein Urine Glucose (UA) Urine Ketones Urine Occult Blood Urine Nitrite Urine Bilirubin Urine Urobilinogen Ur Leukocyte Esterase MRSA (PCR) Negative POC Glucose 03/10/18 12:11 POC Glucose 119 H Medical Necessity - Tobacco Use Smoking Status: Current some day smoker Tobacco Use: Cigarettes Assessment/Plan All Active Problems Encephalopathy acute (Acute) Sepsis (Acute) Healthcare-associated pneumonia (Acute) 1. Acute sepsis 2/2 acute HCAP - Continue empiric abx. CXR c/w pna. Urine antigens negative. Follow cultures. O2 need has improved. Continue duonebs. Lungs are diminished. WBC increased overnight. Afebrile. With his mental status he will not be using the spirometer or Pap therapy at the moment. 2. Acute metabolic encephalopathy - prn ativan. Add scheduled seroquel. pt will not stay in bed. Atrophy on CT of the brain 3. Chronic Hypoxic Respiratory failure secondary to COPD-his baseline oxygen at home is unclear reports he uses between 2-5 L. He is not currently using an increased level oxygen and the nurse have been weaning him down. Reportedly he was 72% on 5 L. 4. History of alcohol abuse-[facility] protocol in place. It is unlikely that he has been on any alcohol as he has been in care home facility. It is unclear if he has access to any. Discussed with family. 5. Hyperlipidemia-statin held. 6. GERD-continue oral Protonix DVT ppx: lovenox DC planning: return to SNF when stable This patient was seen by Eliot Bradley PA-C under the supervision of Doctor Peña.
--- NOTE | 2018-03-11 13:07 | CHAPLAIN ---
Type of Pastoral Visit _x__ Initial Visit ___ Follow-up Visit ___ On-call Visit ___ General Patient Visit ___ Spiritual Assessment ___ Family Conference ___ Bereavement ___ Rapid Response ___ Code Blue ___ Other (describe below) Pastoral Care Referral From _x__ Patient _x__ Family ___ Nurse ___ Physician ___ Pediatric Cns ___ Pilot Plant Operator Helper ___ Other (describe below) Sacrament/Intervention ___ Active listening ___ Anointing ___ Zoroastrian ___ Bereavement ___ Communion ___ Kendal exploration ___ ___ Life review _x__ Prayer ___ Reconciliation ___ Sacrament of Sick _x__ Supportive presence ___ Wedding ___ Other (describe below) Pastoral Comments patient did not awaken when lead performance support analyst called his name; nephew of pt is in room and we discuss what pt might need for spiritual care and support at this time; nephew welcomes prayer but does not indicate further needs at this time
--- NOTE | 2018-03-11 14:53 | CASEMGMT ---
SW spoke with pt and confirmed that pt will be returning to [facility] upon d/c. Plan: [facility] when medically ready TERRENCE Rangel
[2018-03-11] MEDS: Ipratropium/Albuterol Sulfate 3 ML AMPUL.NEB INHALATION (20:00)
[2018-03-12] VITALS (18 sets, daily range): BP systolic 108–162; BP diastolic 50–73; PULSE 94–118; RESP 18–25; TEMP 36.4–36.8; O2SAT 93–98
[2018-03-12] MEDS: LORazepam 2 MG/ML Syringe 1 MG IV ×6 (01:02→23:06)
[2018-03-12] MEDS: Piperacil/Tazobactam 3.375 GM/50 ML ML IV ×3 (05:08→21:20)
[2018-03-12 06:09] LABS: Absolute Neutrophil Count 13.5 X10^3/uL (2.0-7.7); Basophil# 0.03 X10^3/uL; Basophil% 0.2 % (0-1); Hematocrit 41.8 % (40-54); Hemoglobin 12.9 g/dl (13.0-16.5); Lymphocyte % 5.3 % (19-41); Mean Corp Hgb Conc 30.9 g/gl (32-36); Mean Corpuscular Hgb 32.4 pg (27.0-32.0); Mean Platelet Vol. 9.8 fl (6.2-12.0); Monocyte# 0.76 X10^3/uL; Neutrophil # 13.46 X10^3/uL (2.7-7.7); Neutrophil % 89.2 % (47-70); Platelet Count 256 K/mm3 (150-450); RBC Distribution Width CV 12.9 % (11.6-14.6); Red Blood Count 3.98 M/mm3 (4.6-6.2); White Blood Count 15.1 K/mm3 (4.4-11.0)
[2018-03-12 06:14] LABS: POSITIVE COUNT NO; POSITIVE DIFFERENTIAL NO; POSITIVE MORPHOLOGY NO
[2018-03-12 06:23] LABS: Anion Gap 4 (5-15); BUN 41 mg/dL (7-18); Calcium,Total 9.8 mg/dL (8.5-10.1); Chloride 110 mmol/L (98-107); EST Glomerular Filtration Rate 99 mL/min (>60); Est Glom Filt Rate - Afr Amer 120 mL/min (>60); Estimated Creatinine Clearance 60.92 ml/min; Glucose 124 mg/dL (74-106); Potassium 3.5 mmol/L (3.5-5.1); Sodium Level 154 mmol/L (136-145)
[2018-03-12] MEDS: Ipratropium/Albuterol Sulfate 3 ML AMPUL.NEB INHALATION ×2 (07:00→12:51)
[2018-03-12] MEDS: Dextrose 5%-Lactated Ringers 1,000 ML 75 ML IV (08:15)
[2018-03-12] MEDS: Enoxaparin 30 MG/0.3 ML Syringe SC (10:35)
--- NOTE | 2018-03-12 19:08 | PCM.PROGNOTE ---
Subjective: Patient was seen and examined today, he was lethargic today and not very responsive. Patient's vital signs appear stable however, he is tachycardic. Patient's chest x-ray showed evidence of chronic obstructive pulmonary disease and persistent right lung base infiltrate. Patient's labs this morning showed an elevated white blood cell count which was essentially unchanged from yesterday. Patient has remained afebrile. Currently he is not safe for oral intake. - Physical Exam General: No apparent distress, Well developed, Lethargic HEENT: Atraumatic, PERRLA, Normocephalic Oral: Moist Mucosa Neck: Supple, No Nuchal Rigidity, Trachea Midline, Thyroid Normal Size and Texture Lungs: Clear to auscultation, No rhonchi, No wheeze, No rales, Diminished Cardiovascular: Regular rate, Regular Rhythm, Normal S1, Normal S2, No murmurs, No Ectopic Activity Abdomen: Bowel Sounds Present, Soft, Non Tender, Non-Distended Extremities: No edema, Capillary Refill Less than 3 Seconds Skin: No rashes, No breakdown Neurological: Cranial nerves II-XII grossly intact, Neuro grossly intact Psych/Mental Status: - - Patient is lethargic and responds to painful stimuli Vital Signs Temp Pulse Resp BP Pulse Ox 97.9 F 110 H 25 H 148/67 H 96 03/12/18 18:18 03/12/18 18:18 03/12/18 18:18 03/12/18 18:18 03/12/18 18:18 Oxygen Flow Rate (L/min) 3 Oxygen Delivery Method Nasal Cannula Weight: 56.6 kg Body Mass Index (BMI) 18.8 Finger Stick Blood Glucose 119 Intake and Output for Last 24 Hours 03/10/18 03/11/18 03/12/18 23:59 23:59 23:59 Intake Total 111 / 111 2014.4 / 2049.4 Balance 111 / 111 2014.4 2049.4 Microbiology Past 72 Hours 03/10/18 14:35 Blood Culture - Preliminary Blood Culture (Wb) - Left Forearm No growth in 48 hours. 03/10/18 23:30 Urine Culture - Preliminary Urine, Clean Catch Culture exhibits no growth. 03/10/18 23:30 Legionella Antigen - Final Interface Orders 03/10/18 23:30 Streptococcus pneumoniae Antigen (M - Final Interface Orders Laboratory Tests Past 24 Hrs 03/12/18 03/12/18 05:20 05:20 WBC 15.1 H RBC 3.98 L Hgb 12.9 L Hct 41.8 MCV 105.0 H MCH 32.4 H MCHC 30.9 L RDW 12.9 RDW Differential 50.0 H Plt Count 256 MPV 9.8 Immature Gran % (Auto) 0.300 Neut % (Auto) 89.2 H Lymph % (Auto) 5.3 L Mccreary % (Auto) 5.0 Eos % (Auto) 0.0 Baso % (Auto) 0.2 Absolute Neuts (auto) 13.5 H Absolute Lymphs (auto) 0.80 L Total Counted Not Reportable Sodium 154 H Potassium 3.5 Chloride 110 H Carbon Dioxide 40.0 H Anion Gap 4 L BUN 41 H Creatinine 0.80 Estim Creat Clear Calc 60.92 Est GFR (MDRD) Af Amer 120 Est GFR (MDRD) Non-Af 99 BUN/Creatinine Ratio 51.0 H Glucose 124 H Calcium 9.8 Medical Necessity - Tobacco Use Smoking Status: Current some day smoker Tobacco Use: Cigarettes Assessment/Plan All Active Problems Encephalopathy acute (Acute) Sepsis (Acute) Healthcare-associated pneumonia (Acute) #1 acute sepsis secondary to healthcare associated pneumonia versus aspiration pneumonia-patient will remain on Zosyn for now, I will increase patient's IV rate due to his lack of oral intake. #2 acute metabolic encephalopathy on a backdrop of dementia-patient's Seroquel will be stopped, patient is n.p.o. for now anyway, supportive care will continue, patient is a DNR CC arrest. #3 chronic hypoxic respiratory failure-patient's currently stable on 3 L via nasal cannula #4 hyperlipidemia #5 GERD #6 chronic obstructive pulmonary disease #7 coronary artery disease Code Visit Inpatient E&M: 52735 Subs Hosp L2
[2018-03-12] MEDS: Morphine 2 MG/ML Syringe 1 MG IV ×2 (21:20→23:06)
[2018-03-12] MEDS: Dextrose 5%-Lactated Ringers 1,000 ML 100 ML IV (21:20)
[2018-03-12] MEDS: 0.9% NaCl Peripheral Flush Adult/Peds IV (23:06)
[2018-03-13] VITALS (19 sets, daily range): BP systolic 48–135; BP diastolic 33–57; PULSE 76–103; RESP 14–21; TEMP 35.5–36.7; O2SAT 2–98
[2018-03-13] MEDS: Morphine 2 MG/ML Syringe 1 MG IV ×2 (00:10→02:00)
[2018-03-13] MEDS: 0.9% NaCl Peripheral Flush Adult/Peds IV ×2 (00:10→02:01)
[2018-03-13] MEDS: LORazepam 2 MG/ML Syringe 1 MG IV ×2 (00:10→02:00)
[2018-03-13] MEDS: Ipratropium/Albuterol Sulfate 3 ML AMPUL.NEB INHALATION ×2 (00:25→07:13)
[2018-03-13] MEDS: Piperacil/Tazobactam 3.375 GM/50 ML ML IV (05:07)
[2018-03-13 06:46] LABS: Absolute Lymphocyte Count 0.99 X10^3/ul (0.83-4.51); Absolute Neutrophil Count 12.8 X10^3/uL (2.0-7.7); Basophil# 0.02 X10^3/uL; Basophil% 0.1 % (0-1); Hematocrit 42.8 % (40-54); Hemoglobin 12.4 g/dl (13.0-16.5); Lymphocyte # 0.99 X10^3/ul (4.0); Mean Corpuscular Hgb 32.1 pg (27.0-32.0); Mean Corpuscular Volume 110.9 fL (80-94); Monocyte% 2.1 % (0-10); Neutrophil % 90.5 % (47-70); Platelet Count 219 K/mm3 (150-450); RBC Distribution Width CV 13.3 % (11.6-14.6); RBC Distribution Width SD 54.1 fl (35.1-43.9); Red Blood Count 3.86 M/mm3 (4.6-6.2); White Blood Count 14.2 K/mm3 (4.4-11.0)
[2018-03-13 06:48] LABS: POSITIVE COUNT NO; POSITIVE DIFFERENTIAL NO; POSITIVE MORPHOLOGY NO
[2018-03-13 07:09] LABS: ALB/GLOB Ratio 0.5 RATIO (0.9-2.4); AST(SGOT) 20 U/L (15-37); Alanine Aminotransfer ALT/SGPT 38 U/L (16-61); Alkaline Phosphatase 76 U/L (45-117); Anion Gap 3 (5-15); BUN 29 mg/dL (7-18); Calcium,Total 9.3 mg/dL (8.5-10.1); Chloride 113 mmol/L (98-107); EST Glomerular Filtration Rate 77 mL/min (>60); Est Glom Filt Rate - Afr Amer 93 mL/min (>60); Estimated Creatinine Clearance 48.74 ml/min; Glucose 192 mg/dL (74-106); Potassium 4.4 mmol/L (3.5-5.1); Sodium Level 157 mmol/L (136-145)
[2018-03-13] MEDS: Dext 5%-0.45% NS 1,000 ML 100 ML IV (07:44)
[2018-03-13] MEDS: Enoxaparin 30 MG/0.3 ML Syringe SC (09:04)
[2018-03-13] MEDS: Dext 5%-0.45% NS 1,000 ML 1000 ML IV (09:10)
--- NOTE | 2018-03-13 09:52 | NURSING ---
Attempted to call patients Bea at [phone] and now at [phone] - Calls goes straight to voicemail. Son has already been informed of patients condition this AM by HS nurse Agnieszka. Awaiting family arrival to discuss details of potential Hospice.
--- NOTE | 2018-03-13 10:54 | NURSING ---
Spoke with patients sister at this time - in room. Called and spoke with Bea patients at this time and she stated she would be in around an hour. Made aware of patients condition at this time.
--- NOTE | 2018-03-13 14:30 | NURSING ---
Patient observed by MD riggs, direct marketing intern Lin Temple, and myself. Declared at 1430. Family at bedside. Family had asked for IV fluids and antibiotics to be stopped and to stop taking vitals.
--- NOTE | 2018-03-14 17:49 | PCM.DEATH ---
Preliminary Cause of Septic shock secondary to healthcare acquired pneumonia Date of Admission: 03/10/18 Date of : 03/13/18 - Principle Diagnosis #1 septic shock secondary to healthcare associated letsrwvuf-porm-potqjzwq bacterial #2 healthcare associated dxlsoutdn-wigm-tjbohirt bacterial #3 acute metabolic encephalopathy secondary to acute septic shock secondary to healthcare associated pneumonia #4 chronic hypoxic respiratory failure #5 chronic obstructive pulmonary disease #6 dementia #7 coronary artery disease #8 GERD #9 oropharyngeal dysphagia Hospital Course This 77-year-old white male was seen in the emergency room at [facility] after being brought in from a local assisted due to a low pulse oximetry. On presentation to the emergency room, his pulse ox was 90% on 5 L via nasal cannula. Patient had labored breathing, labs revealed normal white blood cell count, chest x-ray revealed an infiltrate in the right lower lobe and left lower lobe. Lactic acid was not elevated. She was disoriented and unable to answer questions properly. Arterial blood gases on 5 L revealed a PCO2 of 59, PO2 of 76, and a pH of 7.37. Patient was admitted to PCU for healthcare acquired pneumonia, he was placed on IV Zosyn and given aerosol treatments and his pulse ox was monitored, patient remained confused initially and was medicated, the following day, it was noted that the patient was more somnolent and was not able to take any oral medications. Discussions were carried out with the patient's son and , patient was a DNR CC arrest and the family did not want aggressive care. They did want antibiotics continued and supportive care however. Patient's medical condition declined, on 03/13/18, patient was found to be hypotensive and despite fluid administration, he remained hypotensive. Family members came in and reiterated that they did not want aggressive medical care. Patient's blood pressure declined further he became bradycardic and at 2:27 PM on 03/13/18, patient . Cause of was felt to be secondary to septic shock from healthcare acquired pneumonia. Code Visit Inpatient E&M: 92413 Disch Hosp
--- NOTE | 2018-03-14 17:58 | EXP.PCM_ITS ---
Preliminary Cause of Septic shock secondary to healthcare acquired pneumonia Date of Admission: 03/10/18 Date of : 03/13/18 - Principle Diagnosis #1 septic shock secondary to healthcare associated jhzyuhuoc-cydt-mvpmstqb bacterial #2 healthcare associated bqjesuwid-mqqw-reqtmvgg bacterial #3 acute metabolic encephalopathy secondary to acute septic shock secondary to healthcare associated pneumonia #4 chronic hypoxic respiratory failure #5 chronic obstructive pulmonary disease #6 dementia #7 coronary artery disease #8 GERD #9 oropharyngeal dysphagia Hospital Course This 77-year-old white male was seen in the emergency room at [facility] after being brought in from a local custodial due to a low pulse oximetry. On presentation to the emergency room, his pulse ox was 90% on 5 L via nasal cannula. Patient had labored breathing, labs revealed normal white blood cell count, chest x-ray revealed an infiltrate in the right lower lobe and left lower lobe. Lactic acid was not elevated. She was disoriented and unable to answer questions properly. Arterial blood gases on 5 L revealed a PCO2 of 59, PO2 of 76, and a pH of 7.37. Patient was admitted to PCU for healthcare acquired pneumonia, he was placed on IV Zosyn and given aerosol treatments and his pulse ox was monitored, patient remained confused initially and was medicated, the following day, it was noted that the patient was more somnolent and was not able to take any oral medications. Discussions were carried out with the patient's son and , patient was a DNR CC arrest and the family did not want aggressive care. They did want antibiotics continued and supportive care however. Patient's medical condition declined, on 03/13/18, patient was found to be hypotensive and despite fluid administration, he remained hypotensive. Family members came in and reiterated that they did not want aggressive medical care. Patient's blood pressure declined further he became bradycardic and at 2:27 PM on 03/13/18, patient . Cause of was felt to be secondary to septic shock from healthcare acquired pneumonia. Code Visit Inpatient E&M: 25159 Disch Hosp
== END 2018-03-13 14:27 | DRG 871 ==
LOC: ED 11:36 → PCU 03-11 02:32
PROVIDERS: Physician Assistant; Admitting Provider Hospitalist; Emergency Provider Emergency Medicine; PCP Family Medicine; Visit Provider Internal Medicine
DX: A41.9 Sepsis, unspecified organism (principal); J18.9 Pneumonia, unspecified organism; R65.21 Severe sepsis with septic shock; G93.41 Metabolic encephalopathy; J44.0 Chronic obstructive pulmonary disease with (acute) lower respiratory infection; J96.11 Chronic respiratory failure with hypoxia; E78.5 Hyperlipidemia, unspecified; I25.10 Atherosclerotic heart disease of native coronary artery without angina pectoris; Z95.1 Presence of aortocoronary bypass graft; Y95 Nosocomial condition; F03.90 Unspecified dementia, unspecified severity, without behavioral disturbance, psychotic disturbance, mood disturbance, and anxiety; K21.9 Gastro-esophageal reflux disease without esophagitis; R13.12 Dysphagia, oropharyngeal phase; Z66 Do not resuscitate; Z99.81 Dependence on supplemental oxygen; F10.11 Alcohol abuse, in remission
CPT/HCPCS: 36415; 36600; 70450; 71045; 80048; 80053; 80076; 81002; 82140; 82803; 82962; 83605; 84484; 85025; 85610; 87040; 87086; 87449; 87641; 92526; 93005; 94640; 97802; 99285; J7050; A4216; J3490; J7799